=== PATIENT | male | born 1945 | race Hispanic/Latino ===

== ENCOUNTER 2018-09-15 12:59 | Observation (INO) | payer MEDICARE ==
[~2018-09-15] VITALS: Ht 167.6 cm; Wt 100.4 kg
--- OUTSIDE RECORDS SUMMARY | 2018-09-15 13:03 | XMS REPORT | Summary of Care ---
Author Author [facility] [place] Organization [facility] [place] Address Unknown Phone Unavailable Encounter HQ Kaitlin_irish(FIN) [id number] Date(s): 10/25/17 - 10/25/17 [facility] [place] [address] [place] [phone] Discharge Disposition: Home or Self Care Attending Physician: Henrry Fisher MD Vital Signs No data available for this section Problem List Condition Effective Dates Status Health Status Informant Angina(Confirmed) Resolved Anxiety(Confirmed) Active Back pain(Confirmed) Resolved Circulation Resolved problem(Confirmed) Depression(Confirmed Resolved ) Diabetes(Confirmed) Active KASHIA (hard of Active hearing)(Confirmed) HTN Active (hypertension)(Confi rmed) Neck pain(Confirmed) Resolved Neuropathy(Confirmed Active )1 1"feet" Allergies, Adverse Reactions, Alerts Substance Reaction Severity Status NKDA Active Medications No data available for this section Results No data available for this section Immunizations No data available for this section Procedures Procedure Date Related Diagnosis Body Site Knee joint operation1 28588 Social History Social History Type Response Smoking Status Never smoker; Exposure to Tobacco Smoke None; Cigarette Smoking Last 365 Days No; Reg Smoking Cessation Counseling No Assessment and Plan No data available for this section
--- OUTSIDE RECORDS SUMMARY | 2018-09-15 13:03 | XMS REPORT | Continuity of Care Document ---
Author Author [facility] Interface Address Unknown Phone Unavailable Problems Problem Status Onset Date Classification Date Reported Comments Source Disorder of kidney and ureter, unspecified 11/22/2017 02/24/2018 [facility] [place] N28.9 - DISORDER OF KIDNEY AND URETER, Active 10/27/2017 [facility] [place] 592.0 Active 05/28/2015 [place] UNK Active 05/28/2015 [facility] 789.03 - ABDMNAL PAIN RT Active 03/13/2015 [facility] [place] 719.45 - JOINT PAIN-PELV Active 05/06/2014 [facility] [place] Angina Resolved Problem 02/24/2018 [facility] [place] Anxiety Active Problem 02/24/2018 [facility] [place] Back pain Resolved Problem 02/24/2018 [facility] [place] Circulation problem Resolved Problem 02/24/2018 [facility] [place] Depression Resolved Problem 02/24/2018 [facility] [place] Diabetes Active Problem 02/24/2018 [facility] [place] ATQASUK (<span ID="[id number]">Confirmed</span>) Active Problem 02/24/2018 [facility] [place] HTN (<span ID="[id number]">Confirmed</span>) Active Problem 02/24/2018 [facility] [place] Neck pain Resolved Problem 02/24/2018 [facility] [place] Neuropathy<sup>1</sup> Active Problem 02/24/2018 "feet" [facility] [place],[facility] Cyst of kidney, acquired 02/24/2018 [facility] [place] XRAY Active [facility] CALCULUS OF KIDNEY Active [facility] Medications Medication Details Route Status Patient Instructions Ordering Provider Order Date Source metoprolol tartrate 1 mg, Route: IVP, Drug form: INJ, ONCE, Dosing Weight 104.545, kg, Start date: 06/16/15 14:48:00, Stop date: 06/16/15 14:48:00 Inactive 06/16/2015 [facility] Ondansetron 4 mg, Route: IVP, ONCE, Dosing Weight 104.545, kg, PRN Nausea & Vomiting, Start date: 06/16/15 14:46:00 Inactive 06/16/2015 [facility] Flumazenil 0.2 mg, Route: IVP, PRN, Dosing Weight 104.545, kg, PRN Benzodiazepine Reversal, Initial dose, Start date: 06/16/15 14:46:00, Duration: 30 day, Stop date: 07/16/15 14:45:00 Inactive 06/16/2015 [facility] Meperidine 12.5 mg, Route: IVP, Q30Min, Dosing Weight 104.545, kg, PRN Other -See Comment, For shivering, Start date: 06/16/15 14:46:00, Duration: 2 doses or times, Stop date: Limited # of times Inactive 06/16/2015 [facility] Oxycodone 10 mg, Route: PO, Drug form: TAB, Q4H, Dosing Weight 104.545, kg, PRN Pain Score 7-10, Start date: 06/16/15 14:46:00, Duration: 30 day, Stop date: 07/16/15 14:45:00 Inactive 06/16/2015 [facility] Naloxone 0.04 mg, Route: IVP, Q2MIN, Dosing Weight 104.545, kg, PRN Narcotic Reversal, Start date: 06/16/15 14:46:00, Duration: 8 doses or times, Stop date: Limited # of times Inactive 06/16/2015 [facility] Fentanyl 50 microgram, Route: IVP, Q5Min, Dosing Weight 104.545, kg, PRN Pain Score 7-10, Start date: 06/16/15 14:46:00, Duration: 2 doses or times, Stop date: Limited # of times Inactive 06/16/2015 [facility] Hydromorphone 0.5 mg, Route: IVP, Q5Min, Dosing Weight 104.545, kg, PRN Pain Score 7-10, Start date: 06/16/15 14:46:00, Duration: 4 doses or times, Stop date: Limited # of times Inactive 06/16/2015 [facility] Hydralazine 10 mg, Route: IVP, Q20Min, Dosing Weight 104.545, kg, PRN Elevated BP, Start date: 06/16/15 14:46:00, Duration: 2 doses or times, Stop date: Limited # of times Inactive 06/16/2015 [facility] Acetaminophen 325 MG / Hydrocodone Bitartrate 5 MG Oral Tablet 1 tab, Route: PO, Dosing Weight 104.545, kg, Q4H, PRN Pain Score 4-6, Start date: 06/16/15 14:08:00, Duration: 30 day, Stop date: 07/16/15 14:07:00 Inactive 06/16/2015 [facility] Morphine 2 mg, Route: IVP, Q3H, Dosing Weight 104.545, kg, PRN Pain Score 1-3, Start date: 06/16/15 14:08:00, Duration: 30 day, Stop date: 07/16/15 14:07:00 Inactive 06/16/2015 [facility] amLODIPine 5 mg oral tablet 5 mg=1 tab, PO, Daily, # 30 tab, 0 Refill(s) Active 06/16/2015 [facility] Insulin regular 8 unit, Route: IV, ONCE, Dosing Weight 104.545, kg, Start date: 06/16/15 11:20:00, Stop date: 06/16/15 11:20:00 Inactive 06/16/2015 [facility] Ciprofloxacin 2 MG/ML Injectable Solution 400 mg, 200 mL, Route: IVPB, Drug form: INJ, ONCE, Dosing Weight 104.545, kg, Start date: 06/16/15 10:56:00, Stop date: 06/16/15 10:56:00Notes: Do not refrigerate Inactive 06/16/2015 [facility] Calcium Chloride 0.0014 MEQ/ML / Potassium Chloride 0.004 MEQ/ML / Sodium Chloride 0.103 MEQ/ML / Sodium Lactate 0.028 MEQ/ML Injectable Solution 1,000 mL, Rate: 25 ml/hr, Infuse over: 40 hr, Route: IV, Dosing Weight 104.545 kg, Total Volume: 1,000, Start date: 06/16/15 10:56:00, Duration: 30 day, Stop date: 09/16/15 10:55:00 Inactive 06/16/2015 [facility] Insulin regular See Instructions, "morning and night"SUB- Q, 0 Refill(s)Special Instructions: "morning and night"SUB-Q Active 05/29/2015 [facility] Home Medication 0.4 mg=, PO, Daily, Refill(s) 0 Active 05/29/2015 [facility] Allergies, Adverse Reactions, Alerts Substance Category Reaction Severity Reaction type Status Date Reported Comments Source Immunizations Immunization Date Given Site Status Last Updated Comments Source Results Order Name Results Value Reference Range Date Interpretation Comments Source Spine cervical 2 or 3 view DX Spine cervical 2 or 3 view DX Exam: Spine cervical 2 or 3 view DX Reason for Exam: Cervicalgia Comparison Exam: None Discussion: On lateral view, the cervical spine is seen from the C1 vertebral body level down through the C7/T1 junction. Vertebral body heights are maintained. No spondylolisthesis. Mild multilevel degenerative changes seen within the cervical spine. No suspicious osteoblastic or osteolytic lesions. Prevertebral soft tissue is within normal limits. Lateral masses of C1 and dens of C2 appear intact. Please note that a cervical spine x-ray cannot rule out ligamentous injuries or spinal cord abnormalities. Visualized portions of the lung apices are unremarkable. Impression: 1. Mild multilevel degenerative changes seen within the cervical spine. 06/07/2018 - - Read by: Jose A Huddleston MD Dictated Date/time: 06/07/18 14:52 Electronically Signed by: Jose A Huddleston MD 06/07/18 14:55 FINAL REPORT [facility] Abdomen w/wo contrast MRI Abdomen w/wo contrast MRI INDICATION: N28.9 Disorder of kidney and ureter, unspecified COMPARISON: Abdomen/pelvis CT dated 10/25/2017 TECHNIQUE: Multiplanar multisequential MR images of the abdomen were obtained with and without intravenous contrast administration according to the renal protocol. Contrast: 20 mL Dotarem FINDINGS: Lines and tubes: None. Lower thorax: Unremarkable. Liver and biliary tree: Visualized portions are unremarkable Gallbladder: Normal. No MR evidence of gallstones. Pancreas: Unremarkable Spleen: Visualized portions are unremarkable Adrenals: Unremarkable Kidneys and proximal ureters: Small bilateral renal cysts are again seen, more so in the left kidney. No complex features are identified. There is no hydronephrosis. Gastrointestinal tract: Duodenal diverticula are again noted. Peritoneum and retroperitoneum: No ascites or free air. Lymph nodes: No pathologic adenopathy. Vasculature: Unremarkable. Bones: No acute abnormality. Soft tissues: Unremarkable. IMPRESSION: Small renal cysts. No complex features are identified. However, there is some limitation due to their small size and significant patient motion artifact. These can be followed up in one year with renal ultrasound or a contrast- enhanced CT as these studies are less sensitive to patient motion artifact. 11/18/2017 - - Read by: Alli Arguello Dictated Date/time: 11/18/17 15:35 Electronically Signed by: Alli Arguello 11/18/17 16:16 FINAL REPORT [facility] Abdomen/Pelvis w IV contrast CT Abdomen/Pelvis w IV contrast CT Exam: CT Scan of the abdomen and pelvis with contrast Reason for Exam: - R10.84 Generalized abdominal pain Comparison Exam: X-ray 07/02/2015 Technique: Multiple axial images were obtained of the abdomen and pelvis. 5 mm slices were acquired after injection of 100 cc Omnipaque 300 IV. Oral contrast was also given. Reformatted sagittal and coronal images were obtained for additional diagnostic information. Total exam DRN=0431 mGy-cm. This exam was performed according to our departmental dose-optimization program, which includes automated exposure control, adjustment of the MA and/or KV according to patient size and/or use of iterative reconstruction technique. Discussion: Visualized portions of the lung bases are unremarkable. Liver and gallbladder are unremarkable. No biliary duct dilation. Portal venous system is patent. Stomach is unremarkable. Pancreas, adrenal glands, and spleen are within normal limits. 5.2 cm duodenal diverticulum originating from the 3rd portion of the duodenum. Multiple hypodensities are seen within the kidneys. One appears to be more dense than expected for a simple cyst and measures 1.0 cm (3, 67). It is noted within the right kidney. Short-term follow-up MRI exam with renal mass protocol should be considered. No hydronephrosis or hydroureter. No dilated loops of bowel. The appendix is normal. Bladder is unremarkable. Prostate gland is enlarged. No dilated loops of bowel. No appreciable lymphadenopathy. No acute bony abnormalities appreciated. No suspicious osteoblastic or osteolytic lesions. No evidence seen for abdominal aortic aneurysm or dissection. Impression: 1. No acute abnormalities seen within the abdomen or pelvis. Note is made of a 5.2 cm diverticulum originating from the 3rd portion of the duodenum. 2. Multiple hypodensities are seen within the kidneys. One appears to be more dense than expected for a simple cyst and measures 1.0 cm (3, 67). It is noted within the right kidney. Short-term follow-up MRI exam with renal mass protocol should be considered. 10/25/2017 - - Read by: Jose A Huddleston MD Dictated Date/time: 10/25/17 13:12 Electronically Signed by: Jose A Huddleston MD 10/25/17 13:19 FINAL REPORT [facility] [place] Abdomen AP DX Abdomen AP DX ABDOMINAL RADIOGRAPH SINGLE VIEW INDICATION: Follow-up renal calculus COMPARISON: Abdominal radiograph 06/16/2015 IMPRESSION: Previously seen 7 mm calculus of the left kidney is no longer visible. No urolithiasis is seen. Specifically, no calculi are seen in the expected region of the ureters. A large amount stool is present throughout the abdomen. Tiny calculi may potentially be obscured. There is no bowel dilatation or evidence of pneumoperitoneum. SL: 16 07/02/2015 - - Read by: Brayden Wilson MD Dictated Date/time: 07/02/15 15:45 Electronically Signed by: Brayden Wilson MD 07/02/15 15:47 FINAL REPORT [facility] Abdomen AP DX Abdomen AP DX ABDOMEN (1 view) HISTORY: Renal stone disease Comparison is made to 05/28/2015. FINDINGS: 1. No significant change in approximately 7 mm calculus in the region of the lower pole the left kidney. 2. No other definite urinary tract calculi are seen. Small rounded calcifications within the pelvis, particularly on the left, unchanged and felt represent phleboliths. 3. The bowel gas pattern is unremarkable. 4. Mild scattered degenerative change involving the lumbar spine. Coding: Abdomen 1 view CPT Code: 57893 SL: 13 Rey Coreas M.D. 06/16/2015 - - Read by: Rey Coreas MD Dictated Date/time: 06/16/15 10:26 Electronically Signed by: Rey Coreas MD 06/16/15 10:28 FINAL REPORT [facility] CHEM PANEL eGFR 62 mL/min/1.73m2 05/29/2015 Result Comment: The eGFR is calculated using the CKD-EPI formula. In most young, healthy individuals the eGFR will be >90 mL/min/1.73m2. The eGFR declines with age. An eGFR of 60-89 may be normal in some populations, particularly the elderly, for whom the CKD-EPI formula has not been extensively validated. Use of the eGFR is not recommended in the following populations: Individuals with unstable creatinine concentrations, including patients and those with serious co-morbid conditions. Patients with extremes in muscle mass or diet. The data above are obtained from the National Kidney Disease Education Program (NKDEP) which additionally recommends that when the eGFR is used in patients with extremes of body mass index for purposes of drug dosing, the eGFR should be multiplied by the estimated BMI. [facility] CHEM PANEL BUN 27 mg/dL 7 - 05/29/2015 [facility] CHEM PANEL CO2 26 meq/L 24 - 32 05/29/2015 [facility] CHEM PANEL Calcium Lvl 9.1 mg/dL 8.5 - 10.5 05/29/2015 [facility] CHEM PANEL Chloride Lvl 101 meq/L 95 - 109 05/29/2015 [facility] CHEM PANEL Glucose Lvl 300 mg/dL 70 - 99 05/29/2015 [facility] CHEM PANEL Creatinine Lvl 1.2 mg/dL 0.5 - 1.4 05/29/2015 [facility] CHEM PANEL Sodium Lvl 135 meq/L 135 - 145 05/29/2015 [facility] CHEM PANEL Potassium Lvl 4.4 meq/L 3.5 - 5.1 05/29/2015 [facility] CHEM PANEL AGAP 12.4 meq/L 10.0 - 20.0 05/29/2015 [facility] HEMATOLOGY MCV 87.0 fL 80.0 - 94.0 05/29/2015 [facility] Hct 37.7 % 42.0 - 54.0 05/29/2015 [facility] Hgb 12.9 g/dL 14.0 - 18.0 05/29/2015 [facility] MCHC 34.1 g/dL 32.0 - 36.0 05/29/2015 [facility] MCH 29.7 pg 27.0 - 31.0 05/29/2015 [facility] RBC 4.34 M/CMM 4.70 - 6.10 05/29/2015 [facility] WBC 7.7 K/CMM 3.7 - 10.4 05/29/2015 [facility] Platelet 141 K/CMM 133 - 450 05/29/2015 [facility] RDW 13.5 % 11.5 - 14.5 05/29/2015 [facility] MPV 12.5 fL 7.4 - 10.4 05/29/2015 [facility] PTT 24.0 s 22.9 - 35.8 05/29/2015 [facility] PT 13.1 s 12.0 - 14.7 05/29/2015 [facility] INR 0.99 0.85 - 1.17 05/29/2015 [facility] Lymphocytes # 1.4 K/CMM 1.0 - 5.5 05/29/2015 [facility] HEMATOLOGY Monocytes # 0.4 K/CMM 0.0 - 0.8 05/29/2015 [facility] Basophils # 0.1 K/CMM 0.0 - 0.2 05/29/2015 [facility] Large Plt Moderate *ABN* (05/29/15 5:16 PM) None Seen 05/29/2015 [facility] Eosinophils # 0.1 K/CMM 0.0 - 0.5 05/29/2015 [facility] RBC Morph Normal (05/29/15 5:16 PM) 05/29/2015 [facility] Segs 73.5 % 45.0 - 75.0 05/29/2015 [facility] Eosinophils 1.5 % 0.0 - 4.0 05/29/2015 [facility] Lymphocytes 18.6 % 20.0 - 40.0 05/29/2015 [facility] Monocytes 5.5 % 2.0 - 12.0 05/29/2015 [facility] Basophils 0.9 % 0.0 - 1.0 05/29/2015 [facility] Segs-Bands # 5.7 K/CMM 1.5 - 8.1 05/29/2015 [facility] URINE AND STOOL UA Urobilinogen <=1.0 mg/dL 0.1 - 1.0 05/29/2015 [facility] URINE AND STOOL UA Protein Negative mg/dL Negative mg/dL 05/29/2015 [facility] URINE AND STOOL UA Turbidity Clear (05/29/15 5:16 PM) Clear 05/29/2015 [facility] URINE AND STOOL UA Bili Negative *NA* (05/29/15 5:16 PM) Negative 05/29/2015 [facility] URINE AND STOOL UA Nitrite Negative (05/29/15 5:16 PM) Negative 05/29/2015 [facility] URINE AND STOOL UA Ketones Negative mg/dL Negative mg/dL 05/29/2015 [facility] URINE AND STOOL UA Glucose 500 mg/dL Negative mg/dL 05/29/2015 [facility] URINE AND STOOL UA Blood Negative (05/29/15 5:16 PM) Negative 05/29/2015 [facility] URINE AND STOOL UA Color Yellow *NA* (05/29/15 5:16 PM) Yellow 05/29/2015 [facility] URINE AND STOOL UA Spec Grav 1.025 <=1.030 05/29/2015 [facility] URINE AND STOOL UA pH 5.0 5.0 - 8.0 05/29/2015 [facility] URINE AND STOOL UA Leuk Est Small *ABN* (05/29/15 5:16 PM) Negative 05/29/2015 [facility] URINE AND STOOL UA Sq Epi Occasional /LPF Few /LPF 05/29/2015 [facility] URINE AND STOOL UA RBC 3 /HPF 0 - 2 05/29/2015 [facility] URINE AND STOOL UA Mucus Few /LPF None Seen /LPF 05/29/2015 [facility] URINE AND STOOL UA WBC 4 /HPF 0 - 5 05/29/2015 [facility] Abdomen AP DX Abdomen AP DX {ABDOMINAL XRAY} CLINICAL: 592.0 Calculus of Kidney COMPARISON: Lumbar spine x-ray 05/06/2014 TECHNIQUE: Single view of the abdomen was performed. The pelvis is out of [id number]. FINDINGS: 7 mm calculus overlies inferior pole of the left kidney. Nonobstructive bowel gas pattern. No other radiopaque densities identified. The lung bases are relatively clear. There are no clinically significant osseous abnormalities noted. IMPRESSION: Left nephrolithiasis. The pelvis is out of [id number]. 05/28/2015 - - Read by: Femi Lugo MD Dictated Date/time: 05/28/15 11:07 Electronically Signed by: Femi Lugo MD 05/28/15 11:23 FINAL REPORT [facility] [place] Vital Signs Vital Sign Value Date Comments Source Systolic (mm Hg) 130 06/16/2015 [facility] Diastolic (mm Hg) 70 06/16/2015 [facility] Respitory Rate 18 06/16/2015 [facility] Respitory Rate 18 06/16/2015 [facility] Systolic (mm Hg) 136 06/16/2015 [facility] Diastolic (mm Hg) 79 06/16/2015 [facility] Respitory Rate 18 06/16/2015 [facility] Systolic (mm Hg) 135 06/16/2015 [facility] Diastolic (mm Hg) 73 06/16/2015 [facility] Heart Rate 76 06/16/2015 [facility] Weight 104.545 05/29/2015 [facility] BMI Calculated 35.04 05/29/2015 [facility] Height 172.72 cm 05/29/2015 [facility] Heart Rate 64 05/29/2015 [facility] Temperature Oral (F) 98.0 F 05/29/2015 [facility] Encounters Location Location Details Encounter Type Encounter Number Reason For Visit Attending Provider ADM Date DC Date Status Source [facility] [place] [facility] [id number] Henrry Fisher 05/06/2014 05/07/2014 [place] [facility] [place] [facility] [id number] [facility] 05/28[facility]2015 [facility] [id number] 06/16/2015 06/16/2015 [facility] Outpatient [id number] [facility] 07/02/2015 07/03/2015 [facility] [place] Out[facility] [id number] Henrry Fisher 10/25/2017 10/26/2017 THE[facility] [place] [facility] [place] Out[facility] [id number] Henrry Fisher 11/18/2017 11/19/2017 [facility] [place] Procedures Procedure Code Date Perfomer Comments Source Knee joint operation<sup>1</sup> [id number] 2004 [facility] [place] Knee joint operation<sup>1</sup> [id number] 2004 [facility]
--- OUTSIDE RECORDS SUMMARY | 2018-09-15 13:03 | XMS REPORT | Summary of Care ---
Author Author [facility] [place] Organization [facility] Address Unknown Phone Unavailable Encounter HQ Chrisntr_irish(FIN) [id number] Date(s): 11/18/17 - 11/18/17 [facility] [place] [address] [address] [phone] Encounter Diagnosis Disorder of kidney and ureter, unspecified (Final) - 11/21/17 Cyst of kidney, acquired (Final) - Discharge Disposition: Home or Self Care Attending Physician: Henrry Fisher MD Vital Signs No data available for this section Problem List Condition Effective Dates Status Health Status Informant Angina(Confirmed) Resolved Anxiety(Confirmed) Active Back pain(Confirmed) Resolved Circulation Resolved problem(Confirmed) Depression(Confirmed Resolved ) Diabetes(Confirmed) Active [place] (hard of Active hearing)(Confirmed) HTN Active (hypertension)(Confi rmed) Neck pain(Confirmed) Resolved Neuropathy(Confirmed Active )1 1"feet" Allergies, Adverse Reactions, Alerts Substance Reaction Severity Status NKDA Active Medications No data available for this section Results No data available for this section Immunizations No data available for this section Procedures Procedure Date Related Diagnosis Body Site Status Knee joint operation1 Completed 84199 Social History Social History Type Response Smoking Status Never smoker; Exposure to Tobacco Smoke None; Cigarette Smoking Last 365 Days No; Reg Smoking Cessation Counseling No entered on: 06/16/15 Assessment and Plan No data available for this section
--- OUTSIDE RECORDS SUMMARY | 2018-09-15 13:03 | XMS REPORT | Summary of Care ---
Author Organization Unknown Address Unknown Phone Unavailable Encounter HQ Chrisntr_irish(CYNDY) [id number] Date(s): 05/06/14 - 05/06/14 [facility] Outpatient Imaging - [address] [address]- [place] Discharge Disposition: Home Physician Attending: Henrry Fisher MD Reason for Visit 719.45 - JOINT PAIN-PELV Problem List No data available for this section Allergies, Adverse Reactions, Alerts Substance Reaction Severity Status NKDA Active Medications No data available for this section Medications Administered During Your Visit No data available for this section Immunizations No data available for this section Social History Social History Type Response
--- OUTSIDE RECORDS SUMMARY | 2018-09-15 13:03 | XMS REPORT | Summary of Care ---
Author Author [facility] Organization [facility] Address Unknown Phone Unavailable Encounter HQ Carolyn(CYNDY) [id number] Date(s): 06/16/15 - 06/16/15 [facility] [address] [place] [address]- [phone] Discharge Disposition: Home Attending Physician: Javi Tong MD Referring Physician: Javi Tong MD Vital Signs 1 2 3 Most recent to oldest [Reference Range]: 172.72 cm (05/29/15 4:53 PM) Height 1 2 3 Most recent to oldest [Reference Range]: 98.0 DegF (05/29/15 4:53 PM) Temperature Oral [96.4-99.1 DegF] 1 2 3 Most recent to oldest [Reference Range]: 130/70 mmHg (06/16/15 4:15 PM) 136/79 mmHg (06/16/15 4:00 PM) 135/73 mmHg (06/16/15 3:45 PM) Blood Pressure [90-140/60-90 mmHg] 1 2 3 Most recent to oldest [Reference Range]: 18 BRMIN (06/16/15 4:15 PM) 18 BRMIN (06/16/15 4:00 PM) 18 BRMIN (06/16/15 3:45 PM) Respiratory Rate [14-20 BRMIN] 1 2 3 Most recent to oldest [Reference Range]: 76 bpm (06/16/15 12:20 PM) 64 bpm (05/29/15 4:53 PM) Peripheral Pulse Rate [60-100 bpm] 1 2 3 Most recent to oldest [Reference Range]: 104.545 kg (05/29/15 4:53 PM) Weight 1 2 3 Most recent to oldest [Reference Range]: 35.04 m2 (05/29/15 4:53 PM) Body Mass Index Problem List Condition Effective Dates Status Health Status Informant Angina(Confirmed) Resolved Anxiety(Confirmed) Active Back pain(Confirmed) Resolved Circulation Resolved problem(Confirmed) Depression(Confirmed Resolved ) Diabetes(Confirmed) Active [place] (hard of Active hearing)(Confirmed) HTN Active (hypertension)(Confi rmed) Neck pain(Confirmed) Resolved Neuropathy(Confirmed Active )1 1"feet" Allergies, Adverse Reactions, Alerts Substance Reaction Severity Status NKDA Active Medications acetaminophen-hydrocodone 325 mg-5 mg oral tablet 1 tab, Route: PO, Dosing Weight 104.545, kg, Q4H, PRN Pain Score 4-6, Start date : 06/16/15 14:08:00, Duration: 30 day, Stop date: 07/16/15 14:07:00 Start Date: 06/16/15 Stop Date: 06/16/15 Status: Discontinued amLODIPine 5 mg oral tablet 5 mg=1 tab, PO, Daily, # 30 tab, 0 Refill(s) Start Date: 06/16/15 Status: Ordered ciprofloxacin 400 mg/200 mL intravenous solution 400 mg, 200 mL, Route: IVPB, Drug form: INJ, ONCE, Dosing Weight 104.545, kg, St art date: 06/16/15 10:56:00, Stop date: 06/16/15 10:56:00 Notes: Do not refrigerate Start Date: 06/16/15 Stop Date: 06/16/15 Status: Ordered fentaNYL 50 microgram, Route: IVP, Q5Min, Dosing Weight 104.545, kg, PRN Pain Score 7-10, Start date: 06/16/15 14:46:00, Duration: 2 doses or times, Stop date: Limited # of times Start Date: 06/16/15 Stop Date: 06/16/15 Status: Discontinued fentaNYL 25 microgram, Route: IVP, Q5Min, Dosing Weight 104.545, kg, PRN Pain Score 4-6, Start date: 06/16/15 14:46:00, Duration: 4 doses or times, Stop date: Limited # of times Start Date: 06/16/15 Stop Date: 06/16/15 Status: Discontinued flumazenil 0.2 mg, Route: IVP, PRN, Dosing Weight 104.545, kg, PRN Benzodiazepine Reversal, Initial dose, Start date: 06/16/15 14:46:00, Duration: 30 day, Stop date: 07/16 14:45:00 Start Date: 06/16/15 Stop Date: 06/16/15 Status: Discontinued Home Medication 0.4 mg=, PO, Daily, Refill(s) 0 Start Date: 05/29/15 Status: Ordered Home Medication 50 mg=, PO, Daily, diabetes med, Refill(s) 0 Special Instructions: diabetes med Start Date: 05/29/15 Status: Ordered Home Medication cholesterol med, Refill(s) 0 Special Instructions: cholesterol med Start Date: 05/29/15 Status: Ordered hydrALAZINE 10 mg, Route: IVP, Q20Min, Dosing Weight 104.545, kg, PRN Elevated BP, Start rob e: 06/16/15 14:46:00, Duration: 2 doses or times, Stop date: Limited # of times Start Date: 06/16/15 Stop Date: 06/16/15 Status: Discontinued hydromorphone 0.5 mg, Route: IVP, Q5Min, Dosing Weight 104.545, kg, PRN Pain Score 7-10, Start date: 06/16/15 14:46:00, Duration: 4 doses or times, Stop date: Limited # of ti mes Start Date: 06/16/15 Stop Date: 06/16/15 Status: Discontinued Insulin regular See Instructions, "morning and night"SUB-Q, 0 Refill(s) Special Instructions: "morning and night"SUB-Q Start Date: 05/29/15 Status: Ordered Insulin regular 8 unit, Route: IV, ONCE, Dosing Weight 104.545, kg, Start date: 06/16/15 11:20:0 0, Stop date: 06/16/15 11:20:00 Start Date: 06/16/15 Stop Date: 06/16/15 Status: Completed Lactated Ringers Injection IV 1000 mL 1,000 mL, Rate: 25 ml/hr, Infuse over: 40 hr, Route: IV, Dosing Weight 104.545 k g, Total Volume: 1,000, Start date: 06/16/15 10:56:00, Duration: 30 day, Stop da te: 07/16/15 10:55:00 Start Date: 06/16/15 Stop Date: 06/16/15 Status: Discontinued meperidine 12.5 mg, Route: IVP, Q30Min, Dosing Weight 104.545, kg, PRN Other -See Comment, For shivering, Start date: 06/16/15 14:46:00, Duration: 2 doses or times, Stop d ate: Limited # of times Start Date: 06/16/15 Stop Date: 06/16/15 Status: Discontinued metoprolol tartrate 1 mg, Route: IVP, Drug form: INJ, ONCE, Dosing Weight 104.545, kg, Start date: 0 06/16/15 14:48:00, Stop date: 06/16/15 14:48:00 Start Date: 06/16/15 Stop Date: 06/16/15 Status: Completed morphine Sulfate 2 mg, Route: IVP, Q3H, Dosing Weight 104.545, kg, PRN Pain Score 1-3, Start date : 06/16/15 14:08:00, Duration: 30 day, Stop date: 07/16/15 14:07:00 Start Date: 06/16/15 Stop Date: 06/16/15 Status: Discontinued naloxone 0.04 mg, Route: IVP, Q2MIN, Dosing Weight 104.545, kg, PRN Narcotic Reversal, St art date: 06/16/15 14:46:00, Duration: 8 doses or times, Stop date: Limited # of times Start Date: 06/16/15 Stop Date: 06/16/15 Status: Discontinued ondansetron 4 mg, Route: IVP, ONCE, Dosing Weight 104.545, kg, PRN Nausea & Vomiting, Start date: 06/16/15 14:46:00 Start Date: 06/16/15 Stop Date: 06/16/15 Status: Discontinued oxyCODONE 10 mg, Route: PO, Drug form: TAB, Q4H, Dosing Weight 104.545, kg, PRN Pain Score 7-10, Start date: 06/16/15 14:46:00, Duration: 30 day, Stop date: 07/16/15 14:4 5:00 Start Date: 06/16/15 Stop Date: 06/16/15 Status: Discontinued oxyCODONE 5 mg, Route: PO, Drug form: TAB, Q4H, Dosing Weight 104.545, kg, PRN Pain Score 4-6, Start date: 06/16/15 14:46:00, Duration: 30 day, Stop date: 07/16/15 14:45: 00 Start Date: 06/16/15 Stop Date: 06/16/15 Status: Discontinued Results ELECTROLYTES Most recent to 1 oldest [Reference Range]: Sodium Lvl [135-145 135 mEq/L mEq/L] (05/29/15 5:16 PM) Potassium Lvl 4.4 mEq/L [3.5-5.1 mEq/L] (05/29/15 5:16 PM) Chloride Lvl [95-109 101 mEq/L mEq/L] (05/29/15 5:16 PM) CO2 [24-32 mEq/L] 26 mEq/L (05/29/15 5:16 PM) AGAP [10.0-20.0 12.4 mEq/L mEq/L] (05/29/15 5:16 PM) CHEM PANEL Most recent to 1 oldest [Reference Range]: Creatinine Lvl 1.2 mg/dL [0.5-1.4 mg/dL] (05/29/15 5:16 PM) eGFR 62 mL/min/1.73m2 1 *NA* (05/29/15 5:16 PM) BUN [7-22 mg/dL] 27 mg/dL *HI* (05/29/15 5:16 PM) Glucose Lvl [70-99 300 mg/dL mg/dL] *HI* (05/29/15 5:16 PM) Calcium Lvl 9.1 mg/dL [8.5-10.5 mg/dL] (05/29/15 5:16 PM) 1Result Comment: The eGFR is calculated using the [...] from the National Kidney Disease Education Program ( NKDEP) which additionally recommends that when the eGFR is used in patients with extremes of body mass index for purposes of drug dosing, the eGFR should be mul tiplied by the estimated BMI. URINE AND STOOL Most recent to 1 oldest [Reference Range]: UA Turbidity [Clear] Clear (05/29/15 5:16 PM) UA Color [Yellow] Yellow *NA* (05/29/15 5:16 PM) UA pH [5.0-8.0] 5.0 (05/29/15 5:16 PM) UA Spec Grav 1.025 [<=1.030] (05/29/15 5:16 PM) UA Glucose [Negative 500 mg/dL mg/dL] *ABN* (05/29/15 5:16 PM) UA Blood [Negative] Negative (05/29/15 5:16 PM) UA Ketones [Negative Negative mg/dL mg/dL] *NA* (05/29/15 5:16 PM) UA Protein [Negative Negative mg/dL mg/dL] (05/29/15 5:16 PM) UA Urobilinogen <=1.0 mg/dL [0.1-1.0 mg/dL] *NA* (05/29/15 5:16 PM) UA Bili [Negative] Negative *NA* (05/29/15 5:16 PM) UA Leuk Est Small [Negative] *ABN* (05/29/15 5:16 PM) UA Nitrite Negative [Negative] (05/29/15 5:16 PM) UA WBC [0-5 /HPF] 4 /HPF (05/29/15 5:16 PM) UA RBC [0-2 /HPF] 3 /HPF *HI* (05/29/15 5:16 PM) UA Sq Epi [Few /LPF] Occasional /LPF *NA* (05/29/15 5:16 PM) UA Mucus [None Seen Few /LPF /LPF] *NA* (05/29/15 5:16 PM) HEMATOLOGY Most recent to 1 oldest [Reference Range]: WBC [3.7-10.4 K/CMM] 7.7 K/CMM (05/29/15 5:16 PM) RBC [4.70-6.10 4.34 M/CMM M/CMM] *LOW* (05/29/15 5:16 PM) Hgb [14.0-18.0 g/dL] 12.9 g/dL *LOW* (05/29/15 5:16 PM) Hct [42.0-54.0 %] 37.7 % *LOW* (05/29/15 5:16 PM) MCV [80.0-94.0 fL] 87.0 fL (05/29/15 5:16 PM) MCH [27.0-31.0 pg] 29.7 pg (05/29/15 5:16 PM) MCHC [32.0-36.0 34.1 g/dL g/dL] (05/29/15 5:16 PM) RDW [11.5-14.5 %] 13.5 % (05/29/15 5:16 PM) Platelet [133-450 141 K/CMM K/CMM] (05/29/15 5:16 PM) MPV [7.4-10.4 fL] 12.5 fL *HI* (05/29/15 5:16 PM) Segs [45.0-75.0 %] 73.5 % (05/29/15 5:16 PM) Lymphocytes 18.6 % [20.0-40.0 %] *LOW* (05/29/15 5:16 PM) Monocytes [2.0-12.0 5.5 % %] (05/29/15 5:16 PM) Eosinophils [0.0-4.0 1.5 % %] (05/29/15 5:16 PM) Basophils [0.0-1.0 0.9 % %] (05/29/15 5:16 PM) Segs-Bands # 5.7 K/CMM [1.5-8.1 K/CMM] (05/29/15 5:16 PM) Lymphocytes # 1.4 K/CMM [1.0-5.5 K/CMM] (05/29/15 5:16 PM) Monocytes # [0.0-0.8 0.4 K/CMM K/CMM] (05/29/15 5:16 PM) Eosinophils # 0.1 K/CMM [0.0-0.5 K/CMM] (05/29/15 5:16 PM) Basophils # [0.0-0.2 0.1 K/CMM K/CMM] (05/29/15 5:16 PM) RBC Morph Normal (05/29/15 5:16 PM) Large Plt [None Moderate Seen] *ABN* (05/29/15 5:16 PM) PT [12.0-14.7 13.1 seconds seconds] (05/29/15 5:16 PM) INR [0.85-1.17] 0.99 (05/29/15 5:16 PM) PTT [22.9-35.8 24.0 seconds seconds] (05/29/15 5:16 PM) Immunizations No data available for this section Procedures Procedure Date Related Diagnosis Body Site Knee joint operation1 03433 Social History Social History Type Response Smoking Status Never smoker; Exposure to Tobacco Smoke None; Cigarette Smoking Last 365 Days No; Reg Smoking Cessation Counseling No Assessment and Plan No data available for this section
--- OUTSIDE RECORDS SUMMARY | 2018-09-15 13:03 | XMS REPORT | Summary of Care ---
Author Author [facility] Organization [facility] Address Unknown Phone Unavailable Encounter HQ Prestonr_irish(FIN) [id number] Date(s): 07/02/15 - 07/02/15 [facility] [address] [place] [address]- Discharge Disposition: Home Attending Physician: Javi Tong MD Admitting Physician: Javi Tong MD Vital Signs No data available for this section Problem List Condition Effective Dates Status Health Status Informant Angina(Confirmed) Resolved Anxiety(Confirmed) Active Back pain(Confirmed) Resolved Circulation Resolved problem(Confirmed) Depression(Confirmed Resolved ) Diabetes(Confirmed) Active [place] (hard of Active hearing)(Confirmed) HTN Active (hypertension)(Confi rmed) Neck pain(Confirmed) Resolved Neuropathy(Confirmed Active )1 1"feet" Allergies, Adverse Reactions, Alerts Substance Reaction Severity Status NKDA Active Medications No data available for this section Results No data available for this section Immunizations No data available for this section Procedures Procedure Date Related Diagnosis Body Site Knee joint operation1 77809 Social History Social History Type Response Smoking Status Never smoker; Exposure to Tobacco Smoke None; Cigarette Smoking Last 365 Days No; Reg Smoking Cessation Counseling No Assessment and Plan No data available for this section
--- OUTSIDE RECORDS SUMMARY | 2018-09-15 13:03 | XMS REPORT | Summary of Care ---
Author Author [facility] [place] Organization [facility] [place] Address Unknown Phone Unavailable Encounter HQ Chrisntr_irish(FIN) [id number] Date(s): 05/28/15 - 05/28/15 [facility] [place] [address] [place] [address] [phone] Discharge Disposition: Home Attending Physician: Javi Tong MD Vital Signs No data available for this section Problem List Condition Effective Dates Status Health Status Informant Angina(Confirmed) Resolved Anxiety(Confirmed) Active Back pain(Confirmed) Resolved Circulation Resolved problem(Confirmed) Depression(Confirmed Resolved ) Diabetes(Confirmed) Active [place] (hard of Active hearing)(Confirmed) HTN Active (hypertension)(Confi rmed) Neck pain(Confirmed) Resolved Neuropathy(Confirmed Active )1 1"feet" Allergies, Adverse Reactions, Alerts Substance Reaction Severity Status NKDA Active Medications No data available for this section Results No data available for this section Immunizations No data available for this section Procedures Procedure Date Related Diagnosis Body Site Knee joint operation1 75106 Social History Social History Type Response Smoking Status Never smoker; Exposure to Tobacco Smoke None; Cigarette Smoking Last 365 Days No; Reg Smoking Cessation Counseling No Assessment and Plan No data available for this section
[2018-09-15] MEDS ORDERED: ONDANSETRON HCL INJ 2 MG/ML VIAL IV NR (13:25)
[2018-09-15] MEDS ORDERED: SODIUM CHLORIDE 0.9% 1000ML 1,000 ML IV STA (13:25)
[2018-09-15] MEDS ORDERED: MORPHINE SULFATE 2 MG/ML SYR IV NR (13:25)
[2018-09-15] MEDS ORDERED: PANTOPRAZOLE 40 MG 10ML VIAL IV NR (13:30)
[2018-09-15] MEDS ORDERED: TAMSULOSIN HCL0.4 MG PO (13:50)
[2018-09-15] MEDS ORDERED: [UNRECOGNIZED DRUG - MIXTURE] (13:50)
[2018-09-15] MEDS ORDERED: TYLENOL EXTRA500 MG PO (13:50)
[2018-09-15] MEDS ORDERED: TRICOR48 MG PO (13:50)
[2018-09-15] MEDS ORDERED: SUCRALFATE1 GM PO (13:50)
[2018-09-15] MEDS ORDERED: GABAPENTIN100 MG PO (13:50)
[2018-09-15] MEDS ORDERED: AMLODIPINE BESYL5 MG PO (13:50)
[2018-09-15] MEDS ORDERED: JANUVIA100 MG PO (13:50)
[2018-09-15] MEDS ORDERED: FLUOXETINE HCL20 MG PO (13:50)
[2018-09-15] MEDS ORDERED: [UNRECOGNIZED DRUG - OTHER] (13:50)
[2018-09-15] MEDS ORDERED: METFORMIN HCL500 MG PO (13:50)
[2018-09-15] MEDS ORDERED: NOVOLOG100 UNIT/1 (13:50)
[2018-09-15] MEDS ORDERED: LEVEMIR100 UNIT/1 (13:50)
[2018-09-15] MEDS ORDERED: OMEPRAZOLE40 MG PO (13:50)
[2018-09-15] MEDS ORDERED: LISINOPRIL10 MG PO (13:50)
[2018-09-15] MEDS ORDERED: LINZESS PO (13:50)
[2018-09-15] MEDS ORDERED: SODIUM CHLORIDE 0.9% 1000ML 1,000 ML IV SCH (14:34)
[2018-09-15] MEDS ORDERED: DEXTROSE 50% SYRINGE 50 ML IV PRN (14:45)
--- NOTE | 2018-09-15 15:03 | Diagnostic Imaging Report ---
Frontal and lateral views of the chest. HISTORY: Right upper quadrant pain COMPARISON: None available. DISCUSSION: Soft tissue attenuation partially limits sensitivity of the exam. Lungs: Mild retrocardiac atelectasis versus scarring. No evidence of a consolidative pneumonia or pulmonary alveolar edema. Pleura: No pleural effusion or pneumothorax. Heart and mediastinum: The cardiomediastinal silhouette appears unremarkable. Bones: Thoracic findings compatible with DISH (Diffuse idiopathic skeletal hyperostosis). IMPRESSION: 1. Retrocardiac atelectasis versus scarring. 2. No consolidative pneumonia. Signed by: Dr. Lucius Rodriguez D.O., M.M.M. on 09/15/2018 2:59 PM
[2018-09-15 15:05] LABS: CREATINE KINASE MB 1.5 ng/mL (0-5.0)
[2018-09-15 15:19] LABS: AMYLASE 18 U/L (25-125); LIPASE 13 U/L (8-78)
--- NOTE | 2018-09-15 15:20 | Diagnostic Imaging Report ---
EXAM: CT of the abdomen and pelvis WITH contrast HISTORY: Right upper quadrant pain COMPARISON: None. TECHNIQUE: The abdomen and pelvis were scanned utilizing a multidetector helical scanner. Coronal and sagittal reformats are provided. PROTOCOL: Routine IV CONTRAST: 100 cc of Isovue-370. ORAL CONTRAST: None, which limits sensitivity and specificity of the exam. RADIATION DOSE: Total DLP: 914.99 mGy*cm Estimated effective dose: (DLP x 0.015 x size factor) Dose modulation, iterative reconstruction, and/or weight based adjustment of the mA/kV was utilized to reduce the radiation dose to as low as reasonably achievable. COMPLICATIONS: None FINDINGS: LOWER THORAX: Mild bibasilar atelectasis versus scarring. HEPATOBILIARY: No focal hepatic lesions. No biliary ductal dilatation. Diffuse fatty infiltration. The gallbladder is unremarkable. SPLEEN: No splenomegaly. PANCREAS: No focal masses or ductal dilatation. Mild diffuse parenchymal atrophy. ADRENALS: No discrete adrenal nodule. KIDNEYS/URETERS: No hydronephrosis, stones, or solid mass lesions. Bilateral hypodensities, including: Right interpolar 7 mm anterior fluid density, left superior 1.7 cm fluid density, and left inferior 1.1 cm fluid density. PELVIC ORGANS/BLADDER: The prostate is enlarged, 6.8 cm (ML). PERITONEUM / RETROPERITONEUM: No free air or fluid. LYMPH NODES: No pathologically enlarged lymph node. VESSELS: Minimal atherosclerotic vascular calcification. GI TRACT: No distention or wall thickening identified. The appendix is normal. Incidentally, a 3.6 cm diverticulum adjacent to the second portion of the duodenum, without surrounding inflammatory changes. BONES: No aggressive osseous lesion or acute fracture. Multifocal degenerative changes, most notably L5-S1. SOFT TISSUES: Very small fat-containing umbilical hernia, without associated inflammatory changes. IMPRESSION: 1. Hepatic steatosis. 2. Enlarged prostate. 3. Bilateral simple appearing renal cysts. 4. 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 5. Very small fat-containing umbilical hernia. Signed by: Dr. Lucius Rodriguez D.O., M.M.M. on 09/15/2018 3:16 PM
[2018-09-15 16:50] VITALS: BP 182/93
[2018-09-15 16:51] VITALS: BP 182/93
[2018-09-15] MEDS ORDERED: PANTOPRAZOLE 40 MG 10ML VIAL IV SCH (17:00)
[2018-09-15 17:01] VITALS: BP 182/93
[2018-09-15] MEDS: SODIUM CHLORIDE 0.45% 1,000 ML IV SCH (17:20)
[2018-09-15] MEDS: PIPER-TAZ 3.375 GM 50 ML IV SCH (17:20)
--- NOTE | 2018-09-15 17:43 | Diagnostic Imaging Report ---
EXAM: Gallbladder Ultrasound INDICATION: Right upper quadrant pain COMPARISON: None. TECHNIQUE: Transverse and longitudinal images of the gallbladder were obtained. FINDINGS: Liver: Enlarged measuring 19.5 cm in length. Increased echogenicity in the liver likely due to fatty infiltration. Gallbladder: Stones/Sludge: None Wall: 0.3 cm Appearance: No wall thickening, pericholecystic fluid or hydrops. Sonographic Richards's Sign: Negative. Patient given morphine. Bile Ducts: Intrahepatic Ducts: No dilatation Extrahepatic Ducts: Common bile duct measures 0.3 cm, no dilatation Free Fluid: No ascites or pleural effusion Main portal vein diameter 1.0 cm with normal flow. Right kidney measuring 11.7 cm in length and otherwise unremarkable. The pancreas is not well seen. The abdominal aorta and inferior vena cava are not well seen. IMPRESSION: Slightly limited study due to overlying bowel gas. Hepatomegaly with increased echogenicity likely due to fatty infiltration. No gallbladder stones or sludge is seen. Signed by: Dr. Haim Ramires M.D. on 09/15/2018 5:39 PM
[2018-09-15] MEDS: INSULIN LISPRO 100 UNIT/1 ML 3ML VIAL SQ SCH ×2 (17:49→21:34)
[2018-09-15 19:30] VITALS: BP 150/76
[2018-09-15] MEDS: MORPHINE SULFATE 2 MG/ML SYR IV PRN (19:30)
[2018-09-15] MEDS: ONDANSETRON HCL INJ 2 MG/ML VIAL IV PRN (19:30)
[2018-09-16] VITALS (7 sets, daily range): BP systolic 113–144; BP diastolic 56–75
[2018-09-16] MEDS: PIPER-TAZ 3.375 GM 50 ML IV SCH ×4 (00:15→17:12)
[2018-09-16] MEDS: SODIUM CHLORIDE 0.45% 1,000 ML IV SCH (04:44)
[2018-09-16] MEDS: MORPHINE SULFATE 2 MG/ML SYR IV PRN (04:45)
[2018-09-16] MEDS: ONDANSETRON HCL INJ 2 MG/ML VIAL IV PRN (04:45)
[2018-09-16 05:14] LABS: BASOPHILS # (AUTO) 0.1 (0.0-0.1); BASOPHILS % 0.8 % (0.0-1.0); EOSINOPHILS # (AUTO) 0.1 (0.0-0.4); EOSINOPHILS % 2.1 % (0.0-6.0); HEMATOCRIT 33.2 % (38.2-49.6); LYMPHOCYTES % 15.9 % (18.0-39.1); MEAN CORPUSCULAR HEMOGLOBIN 28.9 pg (28-32); MEAN CORPUSCULAR HGB CONC 33.1 g/dL (31-35); MEAN CORPUSCULAR VOLUME 87.4 fL (81-99); MONOCYTES # (AUTO) 0.3 (0.2-0.8); MONOCYTES % 5.3 % (4.4-11.3); NEUTROPHILS # (AUTO) 4.6 (2.1-6.9); NEUTROPHILS % 75.2 % (38.7-80.0); PLATELET COUNT 134 x10e3/uL (140-360); RED CELL DISTRIBUTION WIDTH 12.8 % (11.7-14.4)
[2018-09-16 05:35] LABS: ALANINE AMINOTRANSFERASE 32 IU/L (0-55); ALBUMIN 3.5 g/dL (3.5-5.0); ALBUMIN/GLOBULIN RATIO 1.3 (0.8-2.0); ALKALINE PHOSPHATASE 70 IU/L (40-150); ANION GAP 15.9 mmol/L (8-16); BLOOD UREA NITROGEN 18 mg/dL (7-26); BUN/CREATININE RATIO 16 (6-25); CARBON DIOXIDE 22 mmol/L (22-29); CHLORIDE 101 mmol/L (98-107); CREATININE, SERUM 1.11 mg/dL (0.72-1.25); EST GLOMERULAR FILTRATION RATE > 60 ML/MIN (60-); GLUCOSE 177 mg/dL (74-118); POTASSIUM 3.9 mmol/L (3.5-5.1); SODIUM 135 mmol/L (136-145)
[2018-09-16 06:03] LABS: CREATINE KINASE MB 0.9 ng/mL (0-5.0)
[2018-09-16] MEDS ORDERED: PANTOPRAZOLE SOD 40 MG TABEC PO SCH (07:30)
[2018-09-16] MEDS: INSULIN LISPRO 100 UNIT/1 ML 3ML VIAL SQ SCH ×4 (08:14→21:00)
[2018-09-16] MEDS: PANTOPRAZOLE 40 MG 10ML VIAL IV SCH (08:15)
[2018-09-16] MEDS: AMLODIPINE BESYLATE 5 MG TAB PO SCH (09:00)
[2018-09-16] MEDS: SITAGLIPTIN 100 MG TAB PO SCH (09:00)
[2018-09-16] MEDS: SUCRALFATE 1 GM TAB PO SCH ×3 (09:00→20:37)
[2018-09-16] MEDS: GABAPENTIN 100 MG CAP PO SCH ×3 (09:00→20:37)
[2018-09-16] MEDS: METFORMIN HCL 500 MG TAB PO SCH ×2 (09:00→16:52)
[2018-09-16] MEDS: FLUOXETINE HCL 20 MG CAP PO SCH (09:00)
[2018-09-16] MEDS: TAMSULOSIN HCL 0.4 MG CAP PO SCH (09:00)
[2018-09-16] MEDS: LISINOPRIL 10 MG TAB PO SCH (09:01)
[2018-09-16] MEDS: OYST-CAL-D 500MG TABLET PO SCH ×2 (09:03→16:53)
[2018-09-16] MEDS: FENOFIBRATE 48 MG TAB PO SCH (09:03)
[2018-09-16] MEDS ORDERED: HYDRALAZINE HCL 20 MG/ML VIAL IV PRN (09:15)
[2018-09-16] MEDS ORDERED: ONDANSETRON HCL INJ 2 MG/ML VIAL IV PRN (09:15)
[2018-09-16] MEDS ORDERED: ACETAMINOPHEN 325 MG TAB PO PRN (09:15)
[2018-09-16 09:35] LABS: CLARITY,URINE HAZY (CLEAR); COLOR,URINE YELLOW (YELLOW); LEUKOCYTE ESTERASE ,URINE 2+ (NEGATIVE); NITRITE,URINE NEGATIVE (NEGATIVE); PROTEIN,URINE DIPSTICK NEGATIVE (NEGATIVE)
[2018-09-16 09:36] LABS: BILIRUBIN,URINE NEGATIVE (NEGATIVE); KETONES,URINE NEGATIVE (NEGATIVE); URINE UROBILINOGEN 0.2 mg/dL (0.2 - 1)
[2018-09-16 09:44] LABS: WBC,URINE (MAN) >50 /HPF (0-5)
[2018-09-16 09:45] LABS: BACTERIA,URINE FEW /HPF; EPITHELIAL CELLS,URINE FEW /LPF; RBC,URINE 0-5 /HPF (0-5); RENAL EPITHELIAL CELLS,URINE FEW
[2018-09-16 13:38] LABS: CREATINE KINASE MB 1.2 ng/mL (0-5.0)
[2018-09-17] VITALS (8 sets, daily range): BP systolic 128–165; BP diastolic 59–80
[2018-09-17] MEDS: PIPER-TAZ 3.375 GM 50 ML IV SCH ×4 (00:17→17:32)
[2018-09-17 04:39] LABS: BASOPHILS % 0.6 % (0.0-1.0); EOSINOPHILS # (AUTO) 0.1 (0.0-0.4); EOSINOPHILS % 2.2 % (0.0-6.0); HEMATOCRIT 33.3 % (38.2-49.6); HEMOGLOBIN 11.1 g/dL (14.0-18.0); LYMPHOCYTES # (AUTO) 1.1 (1.0-3.2); LYMPHOCYTES % 16.6 % (18.0-39.1); MEAN CORPUSCULAR HEMOGLOBIN 29.2 pg (28-32); MEAN CORPUSCULAR HGB CONC 33.3 g/dL (31-35); MEAN CORPUSCULAR VOLUME 87.6 fL (81-99); MONOCYTES # (AUTO) 0.3 (0.2-0.8); MONOCYTES % 4.8 % (4.4-11.3); NEUTROPHILS # (AUTO) 4.8 (2.1-6.9); NEUTROPHILS % 75.5 % (38.7-80.0); PLATELET COUNT 136 x10e3/uL (140-360); RED CELL DISTRIBUTION WIDTH 12.7 % (11.7-14.4)
[2018-09-17 04:57] LABS: ANION GAP 17.1 mmol/L (8-16); CALCIUM 8.2 mg/dL (8.4-10.2); CREATININE, SERUM 1.24 mg/dL (0.72-1.25); MAGNESIUM 1.9 MG/DL (1.3-2.1); POTASSIUM 4.1 mmol/L (3.5-5.1)
[2018-09-17 05:31] LABS: FERRITIN 95.96 ng/mL (21.81-274.66)
[2018-09-17] MEDS: SODIUM CHLORIDE 0.45% 1,000 ML IV SCH ×3 (05:41→16:12)
[2018-09-17 05:44] LABS: FOLATE 10.5 ng/mL (7.0-15.4)
[2018-09-17] MEDS ORDERED: Calcium Carbonate PO (08:04)
[2018-09-17] MEDS ORDERED: ceftin PO (08:04)
[2018-09-17] MEDS ORDERED: PANTOPRAZOLE SO40 MG PO (08:04)
[2018-09-17] MEDS ORDERED: CARAFATE1 GM PO (08:04)
[2018-09-17] MEDS ORDERED: ZOFRAN4 MG PO (08:04)
[2018-09-17] MEDS: INSULIN LISPRO 100 UNIT/1 ML 3ML VIAL SQ SCH ×4 (08:11→20:09)
[2018-09-17] MEDS ORDERED: CITRATE OF MAGNESIA 300ML BOTTLE PO NR (08:15)
[2018-09-17] MEDS: OYST-CAL-D 500MG TABLET PO SCH ×2 (08:46→16:08)
[2018-09-17] MEDS: FLUOXETINE HCL 20 MG CAP PO SCH (08:46)
[2018-09-17] MEDS: GABAPENTIN 100 MG CAP PO SCH ×3 (08:46→20:09)
[2018-09-17] MEDS: DOCUSATE SODIUM 100 MG CAP PO SCH ×2 (08:46→16:08)
[2018-09-17] MEDS: TAMSULOSIN HCL 0.4 MG CAP PO SCH (08:46)
[2018-09-17] MEDS: SUCRALFATE 1 GM TAB PO SCH ×3 (08:46→20:09)
[2018-09-17] MEDS: SITAGLIPTIN 100 MG TAB PO SCH (08:46)
[2018-09-17] MEDS: PANTOPRAZOLE 40 MG 10ML VIAL IV SCH (08:46)
[2018-09-17] MEDS: FENOFIBRATE 48 MG TAB PO SCH (08:46)
[2018-09-17] MEDS: AMLODIPINE BESYLATE 5 MG TAB PO SCH (08:46)
[2018-09-17] MEDS: METFORMIN HCL 500 MG TAB PO SCH ×2 (08:46→16:08)
[2018-09-17] MEDS: CEFTRIAXONE SOD 1 GM VIAL IV SCH ×2 (08:46→20:09)
[2018-09-17] MEDS: LISINOPRIL 10 MG TAB PO SCH (08:47)
[2018-09-18] VITALS: BP 121/60
[2018-09-18] MEDS: PIPER-TAZ 3.375 GM 50 ML IV SCH ×2 (02:19→06:09)
[2018-09-18] MEDS: SODIUM CHLORIDE 0.45% 1,000 ML IV SCH ×2 (02:24→05:00)
[2018-09-18 04:00] VITALS: BP 111/54
[2018-09-18 04:48] LABS: BASOPHILS % 0.6 % (0.0-1.0); EOSINOPHILS # (AUTO) 0.2 (0.0-0.4); EOSINOPHILS % 2.7 % (0.0-6.0); HEMATOCRIT 32.5 % (38.2-49.6); HEMOGLOBIN 10.8 g/dL (14.0-18.0); LYMPHOCYTES # (AUTO) 1.1 (1.0-3.2); LYMPHOCYTES % 17.8 % (18.0-39.1); MEAN CORPUSCULAR HGB CONC 33.2 g/dL (31-35); MEAN CORPUSCULAR VOLUME 87.4 fL (81-99); MONOCYTES # (AUTO) 0.3 (0.2-0.8); MONOCYTES % 5.4 % (4.4-11.3); NEUTROPHILS # (AUTO) 4.6 (2.1-6.9); PLATELET COUNT 129 x10e3/uL (140-360); RED BLOOD COUNT 3.72 x10e6/uL (4.3-5.7); RED CELL DISTRIBUTION WIDTH 12.8 % (11.7-14.4)
[2018-09-18 05:05] LABS: ANION GAP 16.5 mmol/L (8-16); CALCIUM 8.7 mg/dL (8.4-10.2); CREATININE, SERUM 1.24 mg/dL (0.72-1.25); MAGNESIUM 1.8 MG/DL (1.3-2.1); POTASSIUM 4.5 mmol/L (3.5-5.1)
[2018-09-18 08:12] VITALS: BP 148/64
[2018-09-18 09:11] VITALS: BP 148/64
[2018-09-18] MEDS: OYST-CAL-D 500MG TABLET PO SCH (09:11)
[2018-09-18] MEDS: CEFTRIAXONE SOD 1 GM VIAL IV SCH (09:11)
[2018-09-18] MEDS: LISINOPRIL 10 MG TAB PO SCH (09:11)
[2018-09-18] MEDS: FENOFIBRATE 48 MG TAB PO SCH (09:11)
[2018-09-18] MEDS: TAMSULOSIN HCL 0.4 MG CAP PO SCH (09:11)
[2018-09-18] MEDS: METFORMIN HCL 500 MG TAB PO SCH (09:11)
[2018-09-18] MEDS: SITAGLIPTIN 100 MG TAB PO SCH (09:11)
[2018-09-18] MEDS: GABAPENTIN 100 MG CAP PO SCH (09:11)
[2018-09-18] MEDS: SUCRALFATE 1 GM TAB PO SCH (09:11)
[2018-09-18] MEDS: AMLODIPINE BESYLATE 5 MG TAB PO SCH (09:11)
[2018-09-18] MEDS: FLUOXETINE HCL 20 MG CAP PO SCH (09:11)
[2018-09-18] MEDS: DOCUSATE SODIUM 100 MG CAP PO SCH (09:11)
[2018-09-18] MEDS: INSULIN LISPRO 100 UNIT/1 ML 3ML VIAL SQ SCH (09:11)
[2018-09-18] MEDS: PANTOPRAZOLE 40 MG 10ML VIAL IV SCH (09:11)
[2018-09-18] MEDS ORDERED: MORPHINE SULFATE INJ 4 MG/ML INJ IV PRN (15:00)
--- NOTE | 2018-09-19 01:43 | Discharge Summary ---
DIAGNOSES 1. Right upper quadrant abdominal pain. 2. Type 2 diabetes. 3. Hyperlipidemia. 4. BPH. 5. Gastroesophageal reflux disease. 6. Hypocalcemia. 7. Obesity with hepatic steatosis. 8. Rule out pancreatitis. 9. Rule out cholecystitis and cholelithiasis. 10. Urinary tract infection. HISTORY: The patient has a history of hyperlipidemia, type 2 diabetes, hypertension, BPH, GERD. SURGICAL HISTORY: Bilateral knee meniscus repair. FAMILY HISTORY: The patient's mom have diabetes. SOCIAL HISTORY: The patient denies alcohol or illicit drug use, but admits to occasional tobacco use. HOSPITAL COURSE: A 72-year-old male admitted for 2 days of right upper quadrant abdominal pain and nausea. He said the pain has been happening for a long time, but got worse over the last couple of days. He has associated nausea; but denies vomiting, diarrhea and fever. Pain is worse with movement and improved with tight shirts. On admission, the patient had gallbladder ultrasound which was negative. CT of the abdomen showed hepatic steatosis. The patient started on Protonix and IV fluids as well as Zosyn. Diet was advanced as tolerated. The patient was resumed on home medicines for other medical problems. The patient was started on Os-Jl D for hypocalcemia. The patient's UA was positive for blood and leukocytes as well as WBCs. The culture came back negative, but the patient was sent with a few more days of Ceftin as well as sucralfate, Protonix, Zofran and Os-Jl D. The patient will resume other home medicines and follow up with primary care in 1 to 2 weeks. He was instructed to continue a low-fat diabetic diet. The patient understands discharge instructions and agreed to plan. At the time of discharge, the patient's abdominal pain is much improved and he is tolerating regular diet. Dictated by: Joanna Brooks NP KENDRICK CHEN MD Job#: [id number]
== END 2018-09-18 15:45 | disposition home or self-care (01) ==
LOC: FSED 12:59 → ERHOLD 14:35 → IMCU 16:37
PROVIDERS: ADMIT Internal Medicine; ATTEND Internal Medicine
DX: R10.11 Right upper quadrant pain (principal); I10 Essential (primary) hypertension; E11.43 Type 2 diabetes mellitus with diabetic autonomic (poly)neuropathy; E78.5 Hyperlipidemia, unspecified; K21.9 Gastro-esophageal reflux disease without esophagitis; N40.0 Benign prostatic hyperplasia without lower urinary tract symptoms; Z83.3 Family history of diabetes mellitus; Z82.49 Family history of ischemic heart disease and other diseases of the circulatory system; D64.9 Anemia, unspecified; E66.9 Obesity, unspecified; K76.0 Fatty (change of) liver, not elsewhere classified; E83.51 Hypocalcemia; K59.00 Constipation, unspecified; N39.0 Urinary tract infection, site not specified
CPT/HCPCS: 36415 ×4; 71046; 74177; 76705; 80048 ×3; 80053; 80076; 81001; 81003; 82150; 82550 ×2; 82553 ×2; 82607; 82728; 82746; 82948 ×4; 83540; 83690 ×2; 83735 ×2; 84466; 84484 ×2; 85025 ×4; 87086; 93005; 96360; 96367 ×2; 96372 ×2; 96376; 99284; G0378 ×4; J0696 ×2; J2270 ×2; J2405 ×2; J2543 ×4; J7030; S0164; 96365; 96374

== ENCOUNTER → 2022-09-29 | Outpatient (RCR) | payer MEDICARE ==
[~2022-09-29] MED LIST: AMLODIPINE BESYL5 MG PO; CARAFATE1 GM PO; Calcium Carbonate PO; FLUOXETINE HCL20 MG PO; GABAPENTIN100 MG PO; JANUVIA100 MG PO; LEVEMIR100 UNIT/1; LINZESS PO; LISINOPRIL10 MG PO; METFORMIN HCL500 MG PO; NOVOLOG100 UNIT/1; OMEPRAZOLE40 MG PO; PANTOPRAZOLE SO40 MG PO; SUCRALFATE1 GM PO; TAMSULOSIN HCL0.4 MG PO; TRICOR48 MG PO; TYLENOL EXTRA500 MG PO; ZOFRAN4 MG PO; [UNRECOGNIZED DRUG - MIXTURE]; [UNRECOGNIZED DRUG - OTHER]; ceftin PO
== END ==
LOC: PT 09-15 10:27
PROVIDERS: ATTEND Physician Assistant
DX: M47.26 Other spondylosis with radiculopathy, lumbar region (principal); M16.0 Bilateral primary osteoarthritis of hip; M25.552 Pain in left hip; M25.551 Pain in right hip; M62.81 Muscle weakness (generalized); R26.2 Difficulty in walking, not elsewhere classified; M53.86 Other specified dorsopathies, lumbar region

== ENCOUNTER 2022-12-28 17:16 | Emergency (ER) | payer MEDICARE ==
[~2022-12-28] VITALS: Ht 167.6 cm; Wt 100.2 kg
[2022-12-28 18:15] LABS: BASOPHILS # (AUTO) 0.1 (0.0-0.1); BASOPHILS % 0.7 % (0.0-1.0); EOSINOPHILS # (AUTO) 0.1 (0.0-0.4); EOSINOPHILS % 1.4 % (0.0-6.0); HEMATOCRIT 37.3 % (38.2-49.6); HEMOGLOBIN 12.8 g/dL (14.0-18.0); LYMPHOCYTES # (AUTO) 1.5 (1.0-3.2); LYMPHOCYTES % 18.2 % (18.0-39.1); MEAN CORPUSCULAR HEMOGLOBIN 31.4 pg (28-32); MEAN CORPUSCULAR HGB CONC 34.3 g/dL (31-35); MEAN CORPUSCULAR VOLUME 91.6 fL (81-99); MONOCYTES # (AUTO) 0.5 (0.2-0.8); MONOCYTES % 5.5 % (4.4-11.3); NEUTROPHILS # (AUTO) 6.2 (2.1-6.9); NEUTROPHILS % 73.7 % (38.7-80.0); PLATELET COUNT 124 x10e3/uL (140-360); RED BLOOD COUNT 4.07 x10e6/uL (4.3-5.7); RED CELL DISTRIBUTION WIDTH 12.7 % (11.7-14.4)
[2022-12-28 18:36] LABS: ALBUMIN 4.1 g/dL (3.5-5.0); ALBUMIN/GLOBULIN RATIO 1.2 (0.8-2.0); ANION GAP 17.4 mmol/L (8-16); CALCIUM 9.1 mg/dL (8.4-10.2); CREATININE, SERUM 1.11 mg/dL (0.72-1.25); POTASSIUM 4.4 mmol/L (3.5-5.1)
== END 2022-12-28 20:30 | disposition home or self-care (01) ==
LOC: ER 17:25
DX: I10 Essential (primary) hypertension (principal)
CPT/HCPCS: 36415; 71045; 80053; 84484; 85025; 93005; 99284